=== PATIENT | male | born 1970 | race Hispanic/Latino ===

== ENCOUNTER 2024-12-01 02:23 | Observation (INO) ==
--- NOTE | 2024-12-01 04:12 | Emergency Department Note ---
HPI - Back Pain/Injury General Chief Complaint: Back Pain/Injury Stated Complaint: CHEST PAIN,HURTS WHEN BREATHES Time Seen by Provider: 12/01/24 02:46 Source: patient and family (spouse) Mode of arrival: walk-in Limitations: no limitations History of Present Illness HPI Narrative: 53-year-old male presents to the ED this morning with complaints of 1 month history of right upper back pain that radiates to the right chest. Pain is described as 10 out of 10 on pain scale, constant, stabbing, worse with laying on right side, Partial and transient relief with Tylenol and cyclobenzaprine. Per medical record, patient was seen here in the [place] ED for similar complaint on 11/21/2024 and 11/23/2024. He was diagnosed with back strain, essential hypertension, diabetes with hyperglycemia, hypokalemia, hyponatremia, hypocalcemia, atypical chest pain. Pt reports he has not followed up with Orthopedics, but does report seeing a chiropractor 2 days ago and was told he had inflammation in a tendon in a rib. Pt is pacing in the exam room holding his back. MD elicited complaint: Reports back pain Pertinent past history: Denies prior back pain, recent trauma, kidney stones, back surgery, neurological deficit, arthritis, cancer, IV drug use or incontinence Onset (ago): month(s) (1) Timing: Reports constant Severity: severe Similar Symptoms Previously: No Quality: Reports stabbing Location: Reports right upper back Radiation: Reports chest (Right side) Exacerbating factors: Reports other (Laying on right side) Relieving factors: Reports other (Partial and transient relief with Tylenol and cyclobenzaprine) Context: Reports unknown Associated symptoms: Reports fever (subjective) and other (N/V, SOB) Treatments prior to arrival: Reports acetaminophen and other medications (Cyclobenzaprine) Work related injury: No Related Data Home Medications Medication Instructions Recorded Confirmed metformin 850 mg tablet 800 mg PO DAILY 11/21/24 12/01/24 Previous Rx's Medication Instructions Recorded amlodipine 5 mg tablet 5 mg PO DAILY htn #30 tabs 11/21/24 cyclobenzaprine 5 mg tablet 5 mg PO TID PRN muscle spasm #21 11/21/24 tabs Allergies Allergy/AdvReac Type Severity Reaction Status Date / Time No Known Drug Allergies Allergy Verified 12/01/24 04:07 Review of Systems Status of ROS 10 or more systems reviewed and unremark able except as noted in history and below Constitutional Reports: fever (Subjective) and fatigue; Denies: chills Eyes Denies: change in vision, light sensitivity, eye discomfort or eye discharge Ears, nose, mouth, and throat Reports: nasal congestion; Denies: throat pain, neck pain, throat swelling, difficulty swallowing, hoarseness or ear pain Cardiovascular Reports: chest pain (Right sided); Denies: palpitations, edema, swelling of feet/ankles or lightheadedness Respiratory Reports: shortness of breath; Denies: cough, wheezing, pain on in spiration, coughing up blood or chest congestion Gastrointestinal Reports: abdominal pain (Epigastric), nausea and vomiting; Denies: diarrhea, constipation or blood in stool Genitourinary Denies: painful urination, urinary frequency, urinary urgency, blood in urine or genital pain Musculoskeletal Reports: back pain (Right upper); Denies: neck pain, extremity pain, extremity swelling, joint pain or limited range of motion Integumentary/Breast Denies: rash, itching or changes in skin color Neurological Reports: headache; Denies: numbness in extremities, weakness in extremities, lack of coordination, slurred speech or difficulty communicating thoughts Psychiatric Denies: anxiety or difficulty concentrating Endocrine Reports: fatigue; Denies: excessive urination or excessive thirst Hematologic/Lymphatic Denies: easy bruising or easy bleeding Allergic/Immunologic Denies: hives, throat swelling, tongue swelling, facial swelling, wheezing, itchy eyes or seasonal allergies PFSH [facility] Medical History (Updated 12/01/24 @ 09:28 by Maria Del Rosario Carrasco APRN) HTN (hypertension) Diabetes mellitus Surgical History H/O left knee surgery Social History Smoking status: never smoker Within the past year, how often did you have a drink containing alcohol: never Score interpretation: A score less than 4 is consistent with normal alcohol consumption. Non-prescribed substance use: denies use Problems where you live: no known problems Feel stressed/tense/nervous/anxious/difficulty sleeping: not at all Due to disability, difficulty making decisions: No Exam Constitutional: abnormal general appearance other (Anxious appearing), distress noted (mild), abnormal body habitus (obese), no limitations and alert Vital Signs - 24 hr 12/01/24 02:30 12/01/24 02:30 12/01/24 03:00 Temperature 97.9 F Pulse Rate 104 H 96 H Respiratory Rate 18 14 Blood Pressure 195/131 168/108 Pulse Oximetry 97 97 96 Oxygen Delivery Me thod Room Air Room Air Room Air 12/01/24 04:00 12/01/24 05:00 12/01/24 06:20 Temperature Pulse Rate 96 H 90 91 H Respiratory Rate 18 17 16 Blood Pressure 175/114 160/96 160/100 Pulse Oximetry 96 95 96 Oxygen Delivery Me thod Room Air Room Air Room Air 12/01/24 06:30 12/01/24 06:38 12/01/24 07:00 Temperature Pulse Rate 103 H 99 H Respiratory Rate 22 20 Blood Pressure 170/105 170/105 142/92 Pulse Oximetry 95 95 Oxygen Delivery Wi thod Room Air Room Air 12/01/24 07:15 12/01/24 07:30 12/01/24 08:00 Temperature Pulse Rate 98 H 100 H Respiratory Rate 18 18 Blood Pressure 147/92 145/91 134/84 Pulse Oximetry 95 95 Oxygen Delivery Me thod Room Air Room Air HENMT: normocephalic, head/scalp atraumatic, hearing grossly normal bilaterally, TMs normal bilaterally, nasal mucous membranes abnormal (nasal discharge) (moderate clear rhinorrhea), external nose normal, oral mucous membranes abnormal (dry) and oropharynx normal Eyes: PERRL, EOMs intact bilaterally, conjunctivae normal, no scleral icterus, alignment normal and periorbital findings normal Neck/C-Spine: visual inspection normal, trachea midline, cervical spine nontender, cervical full ROM noted and supple Lymph: no lymphadenopathy noted Chest: inspection of chest normal and palpation of chest normal Respiratory: breath sounds equal bilaterally, normal respiratory effort, clear to auscultation bilaterally, no wheezes, no rales and no use of accessory muscles Cardiovascular: heart rate abnormal (tachycardic) and regular rhythm noted Gastrointestinal: abdomen normal to inspection, abdomen soft to palpation, tender to palpation (mild) and (epigastric), nondistended and normoactive bowel sounds Genitourinary: no CVA tenderness and bladder normal to palpation Back/Pelvis: spine normal to inspection, no thoracic spine tenderness, no lumbar spine tenderness, thoracic spine ROM normal and lumbar spine ROM normal Extremities: normal to inspection, normal to palpation, no tenderness, full ROM and no deformity Neurology: no movement abnormality noted, no focal motor deficit noted, no sensory deficits noted, gait normal, speech normal, coordination normal and GCS normal Psychiatry: mental status grossly normal, oriented x3, thought process normal, cooperative and affect normal Skin: skin color normal, no rash and skin turgor normal Course Vital Signs Vital signs: Vital Signs Temperature 97.9 F 12/01/24 02:30 Pulse Rate 104 H 12/01/24 02:30 Respiratory Rate 18 12/01/24 02:30 Blood Pressure 195/131 12/01/24 02:30 Pulse Oximetry 97 12/01/24 02:30 Oxygen Delivery Method Room Air 12/01/24 02:30 Temperature 97.9 F 12/01/24 02:30 Pulse Rate 106 H 12/01/24 08:30 Respiratory Rate 14 12/01/24 08:30 Blood Pressure 152/84 12/01/24 08:30 Pulse Oximetry 97 12/01/24 08:30 Oxygen Delivery Method Room Air 12/01/24 08:30 MDM - Back Pain/Injury MDM Narrative Medical decision making narrative: CBC within normal limits except for hemoglobin 18.5 H, MCHC 39.2H, Gran % 42.4L, lymph % 45.6H, sodium 126L, chloride 90.0 L, CO2 18L, anion gap 18.0 H, glucose 432H, total bili 1.16H, AST 62H, alk phos 147H, albumin 2.8L. Lipase is elevated at 271.0. UA is normal except for 4+ glucose. D-dimer and initial and repeat CPK and troponins are within normal limits. BNP within normal limits. Urine drug screen is negative. COVID, flu and strep swabs are all negative. Patient hypertensive BP 195/131 on arrival. Required 10 mg IV hydralazine. Patient reports he was recently started on amlodipine 5 mg and states he has been taking his medications as directed. Patient reports he is out of his metformin and s tates his initial appointment with the primary care provider is not until next week. I have discussed the clinical case, including pertinent positives and negatives with Jennifer in utilization review, and the need for further testing/observation in the inpatient arena. She agrees patient meets observation status criteria. I have made the patient and family aware of the current disposition plan and they are in agreement. Differential Diagnosis Differential diagnosis: Likely renal colic, pyelonephritis, thoracic back pain, AAA, discitis and other (pancreatitis, STEMI, NSTEMI, Gastritis, PUD) Medical Records Attestation: I reviewed the patient's medical records. Medical records narrative: CXR & CTA Chest (PE protocol) reviewed from recent visit. Lab Data Attestation: I reviewed the patient's lab results. Labs: Lab Results 12/01/24 12/01/24 12/01/24 Range/Units 04:11 04:12 06:00 WBC 5.2 (3.7-9.6) K/uL RBC 5.7 (4.40-5.80) M/uL Hgb 18.5 H (14.0-17.4) gm/dL Hct 47.2 (41.3-50.1) % MCV 82.6 (81.9-96.5) fl MCH 32.4 (27.6-33.7) pg MCHC 39.2 H (33.0-35.7) g/dl RDW 13.6 (11.0-14.8) % Plt Count 351 (142-355) K/uL MPV 10.9 H (6.0-10.4) fl Gran % 42.4 L (49.1-73.1) % Lymph % (Auto) 45.6 H (17.6-39.05) % [place] % (Auto) 8.8 (4.5-10.7) % Eos % (Auto) 2.3 (0.0-4.0) % Baso % (Auto) 0.9 (0.0-1.3) Lymph # (Auto) 2.4 (0.8-2.9) [place] # (Auto) 0.5 (0.2-0.8) Eos # (Auto) 0.1 (0.0-0.3) Baso # (Auto) 0.0 (0.0-0.1) Absolute Gran (auto) 2.2 (2.0-6.2) D-Dimer <100 L (100-600) ng/mL Sodium 126 L (136-145) mmol/L Potassium 4.3 (3.6-5.2) mmol/L Chloride 90.0 L (98-107) mmol/L Carbon Dioxide 18 L (21-32) mmol/L Anion Gap 18.0 H (4-14) mEq/L BUN 16 (7-18) mg/dL Creatinine <0.5 L (0.6-1.3) mg/dL Estimated GFR 123.5 (>59.9) Glucose 432 H* (70-110) mg/dL Lactic Acid <0.3 (0.27-1.43) mmol/L Calcium 8.7 (8.5-10.1) mg/dL Total Bilirubin 1.16 H (0.0-1.0) mg/dL AST 62 H (15-37) U/L ALT 39 (30-65) U/L Alkaline Phosphatase 147 H (50-136) U/L Total Creatine Kinase 275 140 (39-308) U/L Troponin I High Sens 14.70 15.60 (4.0-60.4) ng/L B-Natriuretic Peptide <5.0 (0-100) pg/mL Total Protein 7.6 (6.4-8.2) g/dL Albumin 2.8 L (3.4-5.0) g/dL Lipase 271.0 H (16.0-77.0) U/L Urine Color Yellow (STRAW/YELL.) Urine Appearance Clear (CLEAR) Ur Specific Roland 1.010 (1.001-1.035) Urine Protein Negative (NEGATIVE) Urine Glucose (UA) 4+ (NORMAL) Urine Ketones Negative (NEGATIVE) Urine Occult Blood Negative (NEG - TRACE) Urine Nitrite Negative (NEGATIVE) Urine Bilirubin Negative (NEGATIVE) Urine Urobilinogen Normal (NORMAL) Ur Leukocyte Esterase Negative (NEGATIVE) Fluid pH 5.0 (5 - 9) Urine Opiates Screen Neg. (NEGATIVE) Urine Methadone Screen Neg. (NEGATIVE) Barbiturate Screen Neg. (NEGATIVE) Ur Phencyclidine Scrn Neg. (NEGATIVE) Amphetamines Screen Neg. (NEGATIVE) U Benzodiazepines Scrn Neg. (NEGATIVE) Urine Cocaine Screen Neg. (NEGATIVE) U Marijuana (THC) Screen Neg. (NEGATIVE) COVID-19 (TANK) Not detected (Not Detectd) Influenza Type A Ag Negative (Negative) Influenza Type B Ag Negative (Negative) Streptococcus Screen Negative (Negative) Imaging Data Imaging ordered: CT scan - abdomen (CT abdomen and pelvis with contrast) Attestation: I have reviewed the pertinent imaging results. Radiologist's impression: EXAM: CT abdomen pelvis with contrast HISTORY: Chest pain back pain TECHNIQUE: Axial postcontrast images with coronal and sagittal reformats. Dose reduction procedures were used with mA/kv adjusted for body size. COMPARISON: None FINDINGS: Lung bases are clear. Liver, spleen, adrenal glands, and pancreas are within normal limits. Patient is status post cholecystectomy. Kidneys are unobstructed and without stones or masses. No ureteral calculi are identified. The appendix is normal. Abdominal aorta is normal. No enlarged intraperitoneal or retroperitoneal lymphadenopathy of significance identified. There are no findings suggestive of enteritis, colitis, or diverticulitis. No pelvic masses, pelvic fluid, or pelvic lymphadenopathy identified. No bladder abnormality identified. Prostate gland is enlarged. Bilateral small uncomplicated fat containing inguinal hernias are present. No lytic or blastic skeletal lesions of significance are identified. IMPRESSION: No acute inflammatory process identified within the abdomen or pelvis Enlarged prostate gland Bilateral small uncomplicated fat containing inguinal hernias THIS IS AN ELECTRONICALLY VERIFIED FINAL REPORT 12/01/2024 6:13 AM - Electronically signed by Nicolas Mohan MD ECG Data Attestation: I personally reviewed and interpreted this ECG as follows: ECG interpretation date: 12/01/24 ECG interpretation time: 04:30 Prior ECG tracings: not available for review Interpretation: Normal sinus rhythm Rate 91 RR 6 of 6 Normal P waves Normal CHRISTIE Q waves in inferior and anterior leads. Nonspecific ST-T wave abnormalities lateral leads Normal QT/QTc interval Discharge Plan Discharge Patient Disposition: Admitted As Observation Condition: Improved Clinical Impression: Hypertensive crisis, Diabetes mellitus with hyperglycemia, Chest pain, Acute upper back pain, Abdominal pain, epigastric, Nausea & vomiting, Elevated lipase, Acute dyspnea, Enlarged prostate, Bilateral inguinal hernia, Acute dehydration, Acute hyponatremia, Hypochloremia, Increased anion gap metabolic acidosis, Abnormal ECG, Elevated LFTs, Hypoalbuminemia, Glucosuria Interventions: Emergency Department Charge Sheet Last Done: 12/01/24 09:14 Time of Disposition: 06:53
[2024-12-01] MEDS: ONDANSETRON HCL/PF 4 MG/2 ML VIAL IVP STA (04:17)
[2024-12-01 04:43] LABS: Basophils%(Percent) Auto 0.9 (0.0-1.3); Eosinophils#(Absolute)Auto 0.1 (0.0-0.3); Eosinophils%(Percent) Auto 2.3 % (0.0-4.0); Granulocytes % - Auto 42.4 % (49.1-73.1); Granulocytes#(Absolute)- Auto 2.2 (2.0-6.2); Hematocrit 47.2 % (41.3-50.1); Mean Corpuscular Volume 82.6 fl (81.9-96.5); Monocytes #(Absolute)- Auto 0.5 (0.2-0.8); Monocytes %(Percent)- Auto 8.8 % (4.5-10.7); Platelet Count 351 K/uL (142-355); White Blood Count 5.2 K/uL (3.7-9.6)
[2024-12-01 04:53] LABS: Amphetamine Screen Urine NEG. (NEGATIVE); Cannabinoid Screen Urine NEG. (NEGATIVE); Cocaine Screen Urine NEG. (NEGATIVE); Methadone Screen Urine NEG. (NEGATIVE); Opiate Screen Urine NEG. (NEGATIVE)
[2024-12-01 05:19] LABS: Urine Appearance CLEAR (CLEAR); Urine Blood NEGATIVE (NEG - TRACE); Urine Color YELLOW (STRAW/YELL.); Urine Urobilinogen Normal (NORMAL)
[2024-12-01 05:27] LABS: Glucose 432 mg/dL (70-110)
[2024-12-01 05:28] LABS: Carbon Dioxide 18 mmol/L (21-32); Potassium 4.3 mmol/L (3.6-5.2); Sodium 126 mmol/L (136-145)
[2024-12-01] MEDS: HYDRALAZINE HCL 20 MG/ML VIAL IVP ONE (06:38)
[2024-12-01] MEDS: 0.9 % SODIUM CHLORIDE 1000 ML 1,000 ML IV ONE (06:47)
[2024-12-01] MEDS ORDERED: IBUPROFEN 400 MG TABLET PO PRN (10:16)
[2024-12-01] MEDS ORDERED: bisacodyL 10 MG SUPP.RECT PR PRN (10:16)
[2024-12-01] MEDS ORDERED: MAGNESIUM, ALUMINUM HYDROXIDE 30 ML ORAL.SUSP PO PRN (10:16)
[2024-12-01 10:43] LABS: Base Excess ABG -1.2 mmo1/L (-2-2); Oxygen Saturation ABG 96 % (92-100); PO2 ABG 83 mmHg (60-100); pH ABG 7.43 (7.35-7.45)
[2024-12-01 10:47] LABS: PCO2 ABG 34 mmHg (35-45)
[2024-12-01 11:02] LABS: Basophils%(Percent) Auto 0.9 (0.0-1.3); Eosinophils#(Absolute)Auto 0.1 (0.0-0.3); Eosinophils%(Percent) Auto 1.9 % (0.0-4.0); Granulocytes % - Auto 52.5 % (49.1-73.1); Granulocytes#(Absolute)- Auto 2.9 (2.0-6.2); Hematocrit 47.5 % (41.3-50.1); Mean Corpuscular Volume 83.5 fl (81.9-96.5); Monocytes #(Absolute)- Auto 0.5 (0.2-0.8); Monocytes %(Percent)- Auto 8.7 % (4.5-10.7); Platelet Count 243 K/uL (142-355); White Blood Count 5.4 K/uL (3.7-9.6)
[2024-12-01 11:08] LABS: Potassium 4.4 mmol/L (3.6-5.2)
[2024-12-01] MEDS: LOSARTAN POTASSIUM 50 MG TABLET PO SCH (11:15)
[2024-12-01] MEDS: ENOXAPARIN SODIUM 40 MG/0.4 ML SYRINGE SUBQ SCH (11:16)
[2024-12-01] MEDS: PIPERACILLIN/TAZOBACTAM 3.375 3.375 GM in 0.9 % SODIUM CHLORIDE MB+ 100 ML IV SCH (11:16)
[2024-12-01] MEDS: 0.9 % SODIUM CHLORIDE 1000 ML 1,000 ML IV SCH (11:16)
[2024-12-01] MEDS: PANTOPRAZOLE SODIUM 40 MG TABLET.DR PO SCH (11:18)
[2024-12-01] MEDS: FENOFIBRATE 54 MG TABLET PO SCH (13:41)
[2024-12-01] MEDS ORDERED: PROMETHAZINE HCL 25 MG in 0.9 % SODIUM CHLORIDE 50 ML IV PRN (15:15)
[2024-12-01] MEDS: MORPHINE SULFATE 2 MG/ML CARTRIDGE IV PRN (15:36)
[2024-12-01 16:36] LABS: Basophils%(Percent) Auto 0.3 (0.0-1.3); Eosinophils#(Absolute)Auto 0.1 (0.0-0.3); Eosinophils%(Percent) Auto 1.5 % (0.0-4.0); Granulocytes % - Auto 57.6 % (49.1-73.1); Hematocrit 46.4 % (41.3-50.1); Mean Corpuscular Volume 83.1 fl (81.9-96.5); Monocytes #(Absolute)- Auto 0.4 (0.2-0.8); Monocytes %(Percent)- Auto 8.4 % (4.5-10.7); Platelet Count 212 K/uL (142-355); White Blood Count 5.1 K/uL (3.7-9.6)
[2024-12-01 16:49] LABS: Potassium 3.2 mmol/L (3.6-5.2)
[2024-12-01] MEDS: ATORVASTATIN CALCIUM 10 MG TABLET PO SCH (20:21)
[2024-12-02 05:06] LABS: Potassium 3.3 mmol/L (3.6-5.2)
[2024-12-02 05:15] LABS: Basophils%(Percent) Auto 0.2 (0.0-1.3); Eosinophils#(Absolute)Auto 0.1 (0.0-0.3); Eosinophils%(Percent) Auto 2.1 % (0.0-4.0); Granulocytes % - Auto 58.6 % (49.1-73.1); Hematocrit 43.6 % (41.3-50.1); Mean Corpuscular Volume 83.9 fl (81.9-96.5); Monocytes #(Absolute)- Auto 0.4 (0.2-0.8); Monocytes %(Percent)- Auto 8.2 % (4.5-10.7); Platelet Count 203 K/uL (142-355); White Blood Count 5.2 K/uL (3.7-9.6)
[2024-12-02] MEDS: POTASSIUM CHLORIDE 20 MEQ TAB.ER.PRT PO ONE (12:40)
--- NOTE | 2024-12-02 14:35 | History & Physical Report ---
H&P: HPI History of Present Illness Chief complaint: hypertensive crisis,cp,dm with hyperglycemia, dehy Narrative: 53-year-old male presents to the ED this morning with complaints of 1 month history of right upper back pain that radiates to the right chest. Pain is described as 10 out of 10 on pain scale, constant, stabbing, worse with laying on right side, Partial and transient relief with Tylenol and cyclobenzaprine. Per medical record, patient was seen here in the [place] ED for similar complaint on 11/21/2024 and 11/23/2024. He was diagnosed with back strain, essential hypertension, diabetes with hyperglycemia, hypokalemia, hyponatremia, hypocalcemia, atypical chest pain. Pt reports he has not followed up with Orthopedics, but does report seeing a chiropractor 2 days ago and was told he had inflammation in a tendon in a rib. Pt is pacing in the exam room holding his back. MD elicited complaint: Reports back pain Pertinent past history: Denies prior back pain, recent trauma, kidney stones, back surgery, neurological deficit, arthritis, cancer, IV drug use or incontinence Review of Systems Status of ROS 10 or more systems reviewed and unremark able except as noted in history and below Constitutional Reports: fever (Subjective) and fatigue; Denies: chills Eyes Denies: change in vision, light sensitivity, eye discomfort or eye discharge Ears, nose, mouth, and throat Reports: nasal congestion; Denies: throat pain, neck pain, throat swelling, difficulty swallowing, hoarseness or ear pain Cardiovascular Reports: chest pain (Right sided) and shortness of breath with exertion; Denies: palpitations, edema, swelling of feet/ankles or lightheadedness Respiratory Reports: shortness of breath; Denies: cough, wheezing, pain on inspiration, coughing up blood or chest congestion Gastrointestinal Reports: abdominal pain (Epigastric), nausea and vomiting; Denies: diarrhea, constipation, difficulty swallowing or blood in stool Genitourinary Denies: painful urination, urinary frequency, urinary urgency, blood in urine or genital pain Musculoskeletal Reports: back pain (Right upper); Denies: neck pain, extremity pain, extremity swelling, joint pain or limited range of motion Integumentary/Breast Denies: rash, itching or changes in skin color Neurological Reports: headache; Denies: numbness in extremities, weakness in extremities, lack of coordination, slurred speech or difficulty communicating thoughts Psychiatric Denies: anxiety or difficulty concentrating Endocrine Reports: fatigue; Denies: excessive urination or excessive thirst Hematologic/Lymphatic Denies: easy bruising or easy bleeding Allergic/Immunologic Denies: hives, throat swelling, tongue swelling, facial swelling, wheezing, itchy eyes or seasonal allergies [facility] History (Updated 12/02/24 @ 14:54 by Bethanie Branch DO) Hyperlipidemia Type 2 diabetes mellitus with hyperglycemia, without long-term current use of in sulin Hypertriglyceridemia HTN (hypertension) Diabetes mellitus Surgical History History of cholecystectomy H/O left knee surgery Social History Smoking status: never smoker Within the past year, how often did you have a drink containing alcohol: never Score interpretation: A score less than 4 is consistent with normal alcohol consumption. Non-prescribed substance use: denies use Problems where you live: no known problems Highest level of school completed/degree received: high school Feel stressed/tense/nervous/anxious/difficulty sleeping: not at all Due to disability, difficulty making decisions: No Gender Identity: male Meds Home Medications and Allergies Home Medications Medication Instructions Recorded Confirmed Type amlodipine 5 mg tablet 5 mg PO DAILY htn #30 tabs 11/21/24 12/01/24 Rx cyclobenzaprine 5 mg tablet 5 mg PO TID PRN muscle spasm #21 11/21/24 12/01/24 Rx tabs metformin 850 mg tablet 800 mg PO DAILY 11/21/24 12/01/24 History Allergies Allergy/AdvReac Type Severity Reaction Status Date / Time No Known Drug Allergies Allergy Verified 12/01/24 04:07 Exam Constitutional: abnormal general appearance other (Anxious appearing), distress noted (mild), abnormal body habitus (obese), no limitations and alert Vital Signs - 24 hr 12/01/24 16:06 12/01/24 20:00 12/01/24 23:54 Temperature 98.1 F 97.7 F 98.5 F Pulse Rate [Left] 82 89 84 Respiratory Rate 19 20 19 Blood Pressure Blood Pressure [Le ft Arm] 132/81 151/87 146/88 Pulse Oximetry 96 97 96 Oxygen Delivery Me thod Room Air Room Air Room Air 12/02/24 04:00 12/02/24 08:00 12/02/24 08:32 Temperature 98.5 F 98.2 F Pulse Rate [Left] 88 89 Respiratory Rate 17 20 Blood Pressure 169/94 Blood Pressure [Le ft Arm] 166/97 169/94 Pulse Oximetry 98 96 Oxygen Delivery Me thod Room Air Room Air 12/02/24 12:00 Temperature 97.7 F Pulse Rate [Left] 87 Respiratory Rate 20 Blood Pressure Blood Pressure [Le ft Arm] 162/97 Pulse Oximetry 97 Oxygen Delivery La thod Room Air HENMT: normocephalic, head/scalp atraumatic, hearing grossly normal bilaterally, TMs normal bilaterally, nasal mucous membranes abnormal (nasal discharge) (moderate clear rhinorrhea), external nose normal, oral mucous membranes abnormal (dry) and oropharynx normal Eyes: PERRL, EOMs intact bilaterally, conjunctivae normal, no scleral icterus, alignment normal and periorbital findings normal Neck/C-Spine: visual inspection normal, trachea midline, cervical spine nontender, cervical full ROM noted and supple Lymph: no lymphadenopathy noted Chest: inspection of chest normal and palpation of chest normal Respiratory: breath sounds equal bilaterally, normal respiratory effort, clear to auscultation bilaterally, no wheezes, no rales and no use of accessory muscles Cardiovascular: heart rate abnormal (tachycardic) and regular rhythm noted Gastrointestinal: abdomen normal to inspection, abdomen soft to palpation, tender to palpation (mild) and (epigastric), tender to percussion, nondistended, normoactive bowel sounds, hepatosplenomegaly noted, no ascites and no hernia Genitourinary: no CVA tenderness and bladder normal to palpation Back/Pelvis: no thoracic spine tenderness, no lumbar spine tenderness, thoracic spine ROM normal and lumbar spine ROM normal Extremities: normal to inspection, normal to palpation, no tenderness, full ROM and no deformity Neurology: no movement abnormality noted, no focal motor deficit noted, no sensory deficits noted, gait normal, speech normal, coordination normal and GCS normal Psychiatry: mental status grossly normal, oriented x3, thought process normal, cooperative and affect normal Skin: skin color normal, no rash, no lesions, no ecchymosis noted, skin turgor abnormal, no petechiae, no mottling and nails normal Assessment and Plan Assessment and Plan (1) Pancreatitis: Qualifiers: Chronicity: acute Pancreatitis type: other Acute pancreatitis complication: no infection or necrosis Qualified Code(s): K85.80 - Other acute pancreatitis without necrosis or infection Code(s): K85.90 - Acute pancreatitis without necrosis or infection, unspecified (2) Hypertriglyceridemia: Code(s): E78.1 - Pure hyperglyceridemia (3) Hyponatremia: Code(s): E87.1 - Hypo-osmolality and hyponatremia (4) Dehydration: Code(s): E86.0 - Dehydration (5) Polycythemia: Code(s): D75.1 - Secondary polycythemia (6) Type 2 diabetes mellitus with hyperglycemia, without long-term current use of insulin: Code(s): E11.65 - Type 2 diabetes mellitus with hyperglycemia (7) Hyperlipidemia: Qualifiers: Hyperlipidemia type: mixed hyperlipidemia Qualified Code(s): E78.2 - Mixed hyperlipidemia Code(s): E78.5 - Hyperlipidemia, unspecified (8) HTN (hypertension): Qualifiers: Hypertension type: primary hypertension Qualified Code(s): I10 - Esse ntial (primary) hypertension Code(s): I10 - Essential (primary) hypertension (9) Muscle spasm: Code(s): M62.838 - Other muscle spasm (10) Acute thoracic back pain: Qualifiers: Back pain laterality: left Qualified Code(s): M54.6 - Pain in thoracic spine Code(s): M54.6 - Pain in thoracic spine Plan 0.9% at 200 ml per hour after bolus NPO x 18 hours then started brat diet and monitored worsening of pain Creon still not available to help the patient with his pain POC of Blood sugar with sliding scale insulin and once tolerating foods add like a glipizide replace electrolytes per protocol zosyn IV protonix 40 mg IV bid patient moving does not want lovenox injection start fenofibrate an lipitor for cholesterol and triglycerides daily weights Results Labs Labs: CBC WBC 5.2 K/uL (3.7-9.6) 12/02/24 04:37 RBC 5.2 M/uL (4.40-5.80) 12/02/24 04:37 Hgb 14.8 gm/dL (14.0-17.4) 12/02/24 04:37 Hct 43.6 % (41.3-50.1) 12/02/24 04:37 MCV 83.9 fl (81.9-96.5) 12/02/24 04:37 MCH 28.5 pg (27.6-33.7) 12/02/24 04:37 MCHC 33.9 g/dl (33.0-35.7) 12/02/24 04:37 RDW 14.0 % (11.0-14.8) 12/02/24 04:37 Plt Count 203 K/uL (142-355) 12/02/24 04:37 MPV 8.1 fl (6.0-10.4) 12/02/24 04:37 Gran % 58.6 % (49.1-73.1) 12/02/24 04:37 Lymph % (Auto) 30.9 % (17.6-39.05) 12/02/24 04:37 [place] % (Auto) 8.2 % (4.5-10.7) 12/02/24 04:37 Eos % (Auto) 2.1 % (0.0-4.0) 12/02/24 04:37 Baso % (Auto) 0.2 (0.0-1.3) 12/02/24 04:37 Lymph # (Auto) 1.6 (0.8-2.9) 12/02/24 04:37 [place] # (Auto) 0.4 (0.2-0.8) 12/02/24 04:37 Eos # (Auto) 0.1 (0.0-0.3) 12/02/24 04:37 Baso # (Auto) 0.0 (0.0-0.1) 12/02/24 04:37 Absolute Gran (auto) 3.0 (2.0-6.2) 12/02/24 04:37 BMP Sodium 137 mmol/L (136-145) 12/02/24 04:37 Potassium 3.3 mmol/L (3.6-5.2) L 12/02/24 04:37 Chloride 103.0 mmol/L (98-107) 12/02/24 04:37 Carbon Dioxide 24 mmol/L (21-32) 12/02/24 04:37 Anion Gap 10.0 mEq/L (4-14) 12/02/24 04:37 BUN 9 mg/dL (7-18) 12/02/24 04:37 Creatinine 0.5 mg/dL (0.6-1.3) L 12/02/24 04:37 Estimated GFR 123.5 (>59.9) 12/02/24 04:37 Glucose 198 mg/dL (70-110) H 12/02/24 04:37 Calcium 7.8 mg/dL (8.5-10.1) L 12/02/24 04:37 Phosphorus 3.1 mg/dL (2.5-4.9) 12/01/24 06:00 Magnesium 2.0 mg/dL (1.8-2.4) 12/01/24 06:00 Total Bilirubin 0.59 mg/dL (0.0-1.0) 12/02/24 04:37 AST 40 U/L (15-37) H 12/02/24 04:37 ALT 56 U/L (30-65) 12/02/24 04:37 Alkaline Phosphatase 72 U/L (50-136) 12/02/24 04:37 Total Protein 6.0 g/dL (6.4-8.2) L 12/02/24 04:37 Albumin 2.7 g/dL (3.4-5.0) L 12/02/24 04:37 Cardiac Enzymes Troponin I High Sens 15.60 ng/L (4.0-60.4) 12/01/24 06:00 Liver Function Total Bilirubin 0.59 mg/dL (0.0-1.0) 12/02/24 04:37 AST 40 U/L (15-37) H 12/02/24 04:37 ALT 56 U/L (30-65) 12/02/24 04:37 Alkaline Phosphatase 72 U/L (50-136) 12/02/24 04:37 Total Protein 6.0 g/dL (6.4-8.2) L 12/02/24 04:37 Albumin 2.7 g/dL (3.4-5.0) L 12/02/24 04:37 Urine Urine Color Yellow (STRAW/YELL.) 12/01/24 04:12 Urine Appearance Clear (CLEAR) 12/01/24 04:12 Ur Specific [place] 1.010 (1.001-1.035) 12/01/24 04:12 Urine Protein Negative (NEGATIVE) 12/01/24 04:12 Urine Glucose (UA) 4+ (NORMAL) 12/01/24 04:12 Urine Ketones Negative (NEGATIVE) 12/01/24 04:12 Urine Occult Blood Negative (NEG - TRACE) 12/01/24 04:12 Urine Nitrite Negative (NEGATIVE) 12/01/24 04:12 Urine Bilirubin Negative (NEGATIVE) 12/01/24 04:12 Urine Urobilinogen Normal (NORMAL) 12/01/24 04:12 Ur Leukocyte Esterase Negative (NEGATIVE) 12/01/24 04:12 ABG ABG results: 12/01/24 10:27 ABG pH 7.43 ABG pCO2 34 L ABG pO2 107 ABG HCO3 22.6 ABG Total CO2 23.6 ABG O2 Saturation 96 ABG Base Excess -1.2 Attestation: I have reviewed the pertinent ABG results. Pulse Oximetry Attestation: I have reviewed the pertinent pulse oximetry results. ECG Attestation: I have reviewed the pertinent ECG results. Imaging Imaging ordered: CT scan - abdomen and US - abdomen Radiologist's impression: EXAM: US ABDOMEN LIMITED HISTORY: epigastric painepigastric pain; COMPARISON: None available. TECHNIQUE: Multiple cardoza scale and color flow Doppler images of the abdomen were obtained. FINDINGS: The liver is normal in echotexture. No intraparenchymal mass or intrahepatic biliary ductal dilatation can be identified. The gallbladder is surgically absent. The common bile duct is normal measuring 0.4cm. The right kidney is normal in echotexture and size. The right kidney measures 10.3cm. No mass, hydronephrosis, or stone can be identified. The visualized portions of the pancreas is normal in their echotexture and size. Inferior vena cava is normal. IMPRESSION: Unremarkable evaluation of the right upper quadrant abdomen Status post cholecystectomy. CT of the Abdomen Axial postcontrast images with coronal and sagittal reformats. Dose reduction procedures were used with mA/kv adjusted for body size. COMPARISON: None FINDINGS: Lung bases are clear. Liver, spleen, adrenal glands, and pancreas are within normal limits. Patient is status post cholecystectomy. Kidneys are unobstructed and without stones or masses. No ureteral calculi are identified. The appendix is normal. Abdominal aorta is normal. No enlarged intraperitoneal or retroperitoneal lymphadenopathy of significance identified. There are no findings suggestive of enteritis, colitis, or diverticulitis. No pelvic masses, pelvic fluid, or pelvic lymphadenopathy identified. No bladder abnormality identified. Prostate gland is enlarged. Bilateral small uncomplicated fat containing inguinal hernias are present. No lytic or blastic skeletal lesions of significance are identified. IMPRESSION: No acute inflammatory process identified within the abdomen or pelvis Enlarged prostate gland Bilateral small uncomplicated fat containing inguinal hernias
[2024-12-02] MEDS: KETOROLAC 30 MG/ML INJ VIAL IVP PRN (16:18)
[2024-12-02] MEDS: GI COCKTAIL 30 ML SOLUTION PO PRN (20:09)
[2024-12-02] MEDS: ACETAMINOPHEN 500 MG TABLET PO PRN (20:10)
[2024-12-03 04:44] LABS: Basophils%(Percent) Auto 0.5 (0.0-1.3); Eosinophils#(Absolute)Auto 0.1 (0.0-0.3); Eosinophils%(Percent) Auto 2.8 % (0.0-4.0); Granulocytes % - Auto 39.9 % (49.1-73.1); Granulocytes#(Absolute)- Auto 1.6 (2.0-6.2); Hematocrit 44.9 % (41.3-50.1); Mean Corpuscular Volume 84.3 fl (81.9-96.5); Monocytes #(Absolute)- Auto 0.4 (0.2-0.8); Monocytes %(Percent)- Auto 9.9 % (4.5-10.7); Platelet Count 209 K/uL (142-355)
[2024-12-03] MEDS: MORPHINE SULFATE 2 MG/ML CARTRIDGE IV ONE (04:50)
[2024-12-03] MEDS: ONDANSETRON HCL/PF 4 MG/2 ML VIAL INJ PRN (04:54)
[2024-12-03 05:18] LABS: Potassium 3.3 mmol/L (3.6-5.2)
[2024-12-03 07:53] VITALS: PULSE 82; RESP 20; TEMP 97.8
[2024-12-03] MEDS: LOSARTAN POTASSIUM 50 MG TABLET PO SCH (09:20)
[2024-12-03 11:07] VITALS: BP 160/100
--- NOTE | 2024-12-03 11:45 | Discharge Summary ---
DS: Providers Provider Date of admission: 12/01/24 08:16 Primary care physician: NO PCP Provider Admitting clinician: Maria Del Rosario Carrasco Attending physician on admission: Bethanie Branch Consults: 12/01/24 10:16 Consult to Dietitian, Adult Routine Comment: Consulting Provider: Physician Instructions: Reason for consultation: Diabetic diet counseling Has provider been notified: No Attending physician on discharge: Bethanie Branch Discharging clinician: Bethanie Branch Anticipated date of discharge: 12/03/24 DS: Diagnosis Discharge Diagnosis (1) Pancreatitis: Qualifiers: Acute pancreatitis complication: no infection or necrosis Chronicity: acute Pancreatitis type: other Qualified Code(s): K85.80 - Other acute pancreatitis without necrosis or infection (2) Hypertriglyceridemia: (3) Hyponatremia: (4) Dehydration: (5) Polycythemia: (6) Type 2 diabetes mellitus with hyperglycemia, without long-term current use of insulin: (7) Hyperlipidemia: Qualifiers: Hyperlipidemia type: mixed hyperlipidemia Qualified Code(s): E78.2 - Mixed hyperlipidemia (8) HTN (hypertension): Qualifiers: Hypertension type: primary hypertension Qualified Code(s): I10 - Essential (primary) hypertension (9) Muscle spasm: (10) Acute thoracic back pain: Qualifiers: Back pain laterality: left Qualified Code(s): M54.6 - Pain in thoracic spine (11) Patient's noncompliance with other medical treatment and regimen due to financial hardship: Plan Discharge patient home for self care. DS: Summary Hospital Course Hospital Course: 53-year-old male presented to the ED with complaints of 1 month history of right upper back pain that radiates to the right chest. Pain is described as 10 out of 10 on pain scale, constant, stabbing, worse with laying on right side, Partial and transient relief with Tylenol and cyclobenzaprine. Per medical record, patient was seen here in the [place] [facility] ED for similar complaint on 11/21/2024 and 11/23/2024. He was diagnosed with back strain, essential hypertension, diabetes with hyperglycemia, hypokalemia, hyponatremia, hypocalcemia, atypical chest pain. Pt reports he has not followed up with Orthopedics, but does report seeing a chiropractor 2 days before ER visit and was told he had inflammation in a tendon in a rib. Pt is pacing in the exam room holding his back. Admitted to med/surg for observation and treatment. Day 2 of hospital stay, patient experienced some pain through the night per nurse, ER provider gave morphine order x1. Patient was treated for pancreatitis and hyperlipidemia with Losartan Potassium, Atorvastatin Calcium, and Fenofibrate. Patient symptoms and problems are progressing back to baseline. Pain has been controlled with Acetaminophen and Ketorolac Tromethamine. He will be discharged home for self care today. Case management is providing local resources for clinics accepting self-pay patients. Status at Discharge Functional status at discharge: independent ambulation Overall status at discharge: patient is progressing back to baseline Time Spent with Patient Time attestation: Total time spent providing and/or coordinating discharge services: Time spent: greater than 30 minutes Exam Exam: Patient up walking around the room with spouse at bedside upon entering room for exam. Constitutional: abnormal general appearance, no apparent distress, average body habitus, no limitations and alert Vital Signs - 24 hr 12/02/24 12:00 12/02/24 16:00 12/02/24 19:22 Temperature 97.7 F 98.1 F 97.9 F Pulse Rate [Left] 87 86 90 Respiratory Rate 20 19 18 Blood Pressure [Le ft Arm] 162/97 173/100 169/95 Pulse Oximetry 97 99 96 Oxygen Delivery Il thod Room Air Room Air Room Air 12/02/24 23:47 12/03/24 03:22 12/03/24 07:52 Temperature 97.7 F 97.5 F L 97.8 F Pulse Rate [Left] 87 84 82 Respiratory Rate 22 19 20 Blood Pressure [Le ft Arm] 177/107 171/103 180/110 Pulse Oximetry 98 98 98 Oxygen Delivery Il thod Room Air Room Air Room Air HENMT: normocephalic, head/scalp atraumatic, hearing grossly normal bilaterally, TMs normal bilaterally, nasal mucous membranes normal, external nose normal, oral mucous membranes normal and oropharynx normal Eyes: PERRL, EOMs intact bilaterally, conjunctivae normal, no scleral icterus, alignment normal and periorbital findings normal Neck/C-Spine: visual inspection normal, trachea midline, cervical spine nontender, cervical full ROM noted and supple Lymph: no lymphadenopathy noted Chest: inspection of chest normal and palpation of chest normal Respiratory: breath sounds equal bilaterally, normal respiratory effort, clear to auscultation bilaterally, no wheezes, no rales and no use of accessory muscles Cardiovascular: heart rate abnormal (tachycardic) and regular rhythm noted Gastrointestinal: abdomen normal to inspection, abdomen soft to palpation, nontender to palpation, nontender to percussion, nondistended, normoactive bowel sounds, no hepatosplenomegaly, no ascites and no hernia Genitourinary: no CVA tenderness and bladder normal to palpation Back/Pelvis: spine normal to inspection, no thoracic spine tenderness, no lumbar spine tenderness, thoracic spine ROM normal and lumbar spine ROM normal Extremities: normal to inspection, normal to palpation, no tenderness, full ROM and no deformity Neurology: no movement abnormality noted, no focal motor deficit noted, no sensory deficits noted, gait normal, speech normal, coordination normal and GCS normal Psychiatry: mental status grossly normal, oriented x3, thought process normal, cooperative and affect normal Skin: skin color normal, no rash, no lesions, no ecchymosis noted, skin turgor abnormal, no petechiae, no mottling and nails normal DS: Data Data Completed and Pending Labs on day of discharge: Labs from last 24 hours 12/03/24 12/02/24 04:30 04:57 WBC 4.0 RBC 5.3 Hgb 15.2 Hct 44.9 MCV 84.3 MCH 28.6 MCHC 33.9 RDW 13.8 Plt Count 209 MPV 7.8 Gran % 39.9 L Lymph % (Auto) 46.9 H [place] % (Auto) 9.9 Eos % (Auto) 2.8 Baso % (Auto) 0.5 Lymph # (Auto) 1.9 Canadian # (Auto) 0.4 Eos # (Auto) 0.1 Baso # (Auto) 0.0 Absolute Gran (auto) 1.6 L Sodium 137 Potassium 3.3 L Chloride 101.0 Carbon Dioxide 25 Anion Gap 11.0 BUN 6 L Creatinine 0.5 L Estimated GFR 123.5 Glucose 155 H Calcium 8.5 Phosphorus 2.7 Magnesium 1.8 Total Bilirubin 0.73 AST 26 ALT 50 Alkaline Phosphatase 78 B-Natriuretic Peptide 15.3 Total Protein 6.9 Albumin 3.1 L Triglycerides 622 H Cholesterol 255 H LDL Cholesterol 86.0 VLDL Cholesterol, Calc 124 H HDL Cholesterol 41 LDL/HDL Ratio 2.1 Cholesterol/HDL Ratio 6 Lipase 61.0 51.0 Preliminary micro results at discharge 12/01/24 06:00 Blood Culture - Preliminary Blood - Venous Draw (Peripheral) 12/01/24 05:50 Blood Culture - Preliminary Blood - Venous Draw (Peripheral) Imaging CT scan - abdomen: Radiologist's impression: CT abdomen pelvis with contrast Date of Service: 12/01/24 HISTORY: Chest pain back pain TECHNIQUE: Axial postcontrast images with coronal and sagittal reformats. Dose reduction procedures were used with mA/kv adjusted for body size. COMPARISON: None FINDINGS: Lung bases are clear. Liver, spleen, adrenal glands, and pancreas are within normal limits. Patient is status post cholecystectomy. Kidneys are unobstruc emilio and without stones or masses. No ureteral calculi are identified. The appendix is normal. Abdominal aorta is normal. No enlarged intraperitoneal or retroperitoneal lymphadenopathy of significance identified. There are no findings suggestive of enteritis, colitis, or diverticulitis. No pelvic masses, pelvic fluid, or pelvic lymphadenopathy identified. No bladder abnormality identified. Prostate gland is enlarged. Bilateral small uncomplicated fat containing inguinal hernias are present. No lytic or blastic skeletal lesions of significance are identified. IMPRESSION: No acute inflammatory process identified within the abdomen or pelvis Enlarged prostate gland Bilateral small uncomplicated fat containing inguinal hernias US - abdomen: Radiologist's impression: US ABDOMEN LIMITED Date of Service: 12/01/24 HISTORY: epigastric pain; COMPARISON: None available. TECHNIQUE: Multiple cardoza scale and color flow Doppler images of the abdomen were obtained. FINDINGS: The liver is normal in echotexture. No intraparenchymal mass or intrahepatic biliary ductal dilatation can be identified. The gallbladder is surgically absent. The common bile duct is normal measuring 0.4cm. The right kidney is normal in echotexture and size. The right kidney measures 10.3cm. No mass, hydronephrosis, or stone can be identified. The visualized portions of the pancreas is normal in their echotexture and size. Inferior vena cava is normal. IMPRESSION: Unremarkable evaluation of the right upper quadrant abdomen Status post cholecystectomy. Discharge Plan Discharge Disposition: Home, Self-Care Condition: Improved Discharge Medications: New losartan 100 mg tablet 100 mg PO DAILY Qty: 30 0RF acetaminophen 500 mg Tablet 1,000 mg PO Q6H PRN (Reason: fever/pain) Qty: 100 0RF atorvastatin 10 mg Tablet 20 mg PO BEDTIME Qty: 30 0RF fenofibrate 54 mg Tablet 145 mg PO DAILY Qty: 30 0RF glipizide 10 mg tablet 5 mg PO BID Qty: 60 0RF pantoprazole [Protonix] 40 mg tablet,delayed release (DR/EC) 40 mg PO DAILY Qty: 30 0RF tramadol 50 mg tablet 50 mg PO Q8H PRN (Reason: pain) Qty: 60 0RF ondansetron 4 mg tablet,disintegrating 4 mg PO Q6H PRN (Reason: nausea and vomiting) Qty: 10 0RF Continued amlodipine 5 mg tablet 5 mg PO DAILY Qty: 30 0RF cyclobenzaprine 5 mg tablet 5 mg PO TID PRN (Reason: muscle spasm) Qty: 21 0RF Discontinued metformin 850 mg tablet 800 mg PO DAILY Patient Comments: Pt only takes it once a day (not BID as directed) Rx Instructions: 800 mg BID Discharge Orders: Discharge Order (Routine); Ordered 12/03/24 Ordered By: Bethanie Branch Activity: increase activity as tolerated Diet: diabetic diet and low salt diet Interventions: Discharge Assessment Last Done: 12/03/24 11:54 MED/SURG & ICU Observation Charge Sheet Last Done: 12/03/24 12:42 Patient Instructions: Pancreatitis (DC), Hyperlipidemia (DC), Hypertension and Diabetes (DC) Activity Restrictions/Additional Instructions: Avoid fatty and greasy foods and no alcohol of any type follow up PCP in 3-7 days if pain worsens and vomiting recurs and PCP not available retirn to the ER for further evaluation Needs life style modifications and medication compliance for Diabetes and Blood pressure and lipids diet journal with Blood pressure and pulse Blood sugar journals to his follow up appointment and can track his pain Forms: Portal/Health Info Access Inst Follow-Ups: Provider,NO PCP [Primary Care Provider] - (PATIENT PROVIDED WITH LIST OF PROVIDERS AND CHOOSES TO PICK ONE AT A LATER DATE) Discharge Date/Time: 12/03/24 12:43
[2024-12-03] MEDS: AMLODIPINE BESYLATE 5 MG TABLET PO ONE (12:10)
== END 2024-12-03 12:43 | disposition home or self-care (01) ==
LOC: ED 02:23 → MS 02:23
PROVIDERS: ADMIT Family Medicine; ATTEND Family Medicine